=== PATIENT | female | born 2000 | race Caucasian/White ===

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

== ENCOUNTER 2021-02-05 14:51 | Emergency (ER) | payer BC, MEDICAID ==
[~2021-02-05] VITALS: Ht 167.6 cm; Wt 59.0 kg
[2021-02-05 15:20] VITALS: BP 128/91
[2021-02-05] MEDS ORDERED: IBUPROFEN 600 MG TAB PO ONE (16:00)
== END 2021-02-05 16:30 | disposition home or self-care (01) ==
LOC: ER 14:51
DX: S93.491A Sprain of other ligament of right ankle, initial encounter (principal); S90.31XA Contusion of right foot, initial encounter; F41.9 Anxiety disorder, unspecified; W51.XXXA Accidental striking against or bumped into by another person, initial encounter; Y93.89 Activity, other specified; Y92.89 Other specified places as the place of occurrence of the external cause; Y99.8 Other external cause status
CPT/HCPCS: 73600; 73630